=== PATIENT | male | born 1965 | race Caucasian/White ===

== ENCOUNTER 2022-10-27 01:42 | Observation (INO) | payer OTHER ==
[2022-10-27 03:38] VITALS: BMI 28.0
[2022-10-27] MEDS ORDERED: Ondansetron PF 4 MG/2 ML Vial IVP PRN (03:49)
[2022-10-27] MEDS ORDERED: Morphine 2 MG/ML VIAL SLOW IVP PRN ×2 (03:49→15:41)
[2022-10-27] MEDS ORDERED: Morphine 4 MG/ML VIAL SLOW IVP PRN ×2 (03:50→15:41)
[2022-10-27] MEDS: Lactated Ringer's 1,000 ML IV SCH ×2 (05:16→14:04)
[2022-10-27] MEDS ORDERED: Ipratropium/Albuterol 3 ML NEB NEB PRN (07:26)
[2022-10-27] MEDS ORDERED: Famotidine/PF 20 mg/2ml Vial SLOW IVP SCH (09:00)
[2022-10-27] MEDS ORDERED: CEFAZOLIN 2 GM in Sodium Chloride 0.9% 100 ML IVPB SCH (09:30)
[2022-10-27] MEDS ORDERED: Acetaminophen 325 MG TAB PO SCH (12:00)
[2022-10-27] MEDS ORDERED: fentaNYL PF 100 MCG/2 ML SYRINGE ONE (12:49)
[2022-10-27] MEDS ORDERED: SUGAMMADEX SODIUM 200 MG/2 ML VIAL ONE (12:49)
[2022-10-27] MEDS ORDERED: Bupivacaine/Epinephrine 0.25% 30 ML VIAL ONE (12:54)
[2022-10-27] MEDS ORDERED: Lidocaine 1% (PF) 30 ML VIAL ONE (12:54)
[2022-10-27] MEDS ORDERED: Midazolam HCl 2 mg/2 ml Vial ONE (13:01)
[2022-10-27] MEDS ORDERED: Sodium Chloride 0.9% 100 ML ONE (13:02)
[2022-10-27] MEDS ORDERED: CEFAZOLIN 2 GM VIAL ONE (13:02)
[2022-10-27] MEDS ORDERED: Ketorolac Tromethamine 30 MG/ML VIAL ONE (13:10)
[2022-10-27] MEDS ORDERED: Dexamethasone 20 MG/5 ML VIAL ONE (13:10)
[2022-10-27] MEDS ORDERED: PROPOFOL 200 MG/20 ML VIAL ONE (13:10)
[2022-10-27] MEDS ORDERED: Ondansetron PF 4 MG/2 ML Vial ONE (13:10)
[2022-10-27] MEDS ORDERED: ePHEDrine Sulfate 50 MG/10 ML VIAL ONE (13:10)
[2022-10-27] MEDS ORDERED: Lidocaine 1% PF 5 ML VIAL ONE (13:10)
[2022-10-27] MEDS ORDERED: NEOSTIGMINE 3 MG/3 ML SYR 3 MG/3 ML SYRINGE ONE (13:10)
[2022-10-27] MEDS ORDERED: GLYCOPYRROLATE/PF 0.2 MG/ML VIAL ONE (13:10)
[2022-10-27] MEDS ORDERED: Rocuronium Bromide 10 MG/ML (10ML VIAL) ONE (13:10)
[2022-10-27] MEDS ORDERED: HYDROcodone/Acetaminophen 5/325 mg Tablet PO PRN ×2 (15:41)
[2022-10-27 15:45] VITALS: TEMP 98.2
[2022-10-27 16:55] VITALS: BP 123/80
== END 2022-10-27 17:45 | disposition home or self-care (01) ==
LOC: T4-B 02:48 → INTOOBSV 07:26 → OBSVTOIN 07:26
PROVIDERS: ADMIT Surgery; ATTEND Surgery
PROC: 0YU64JZ Supplement Left Inguinal Region with Synthetic Substitute, Percutaneous Endoscopic Approach (ICD-10-PCS; principal; 2022-10-27)
PROC: 8E0W4CZ Robotic Assisted Procedure of Trunk Region, Percutaneous Endoscopic Approach (ICD-10-PCS; 2022-10-27)
DX: K40.30 Unilateral inguinal hernia, with obstruction, without gangrene, not specified as recurrent (principal); K57.30 Diverticulosis of large intestine without perforation or abscess without bleeding
CPT/HCPCS: C1713; G0378; J1100; J1885; J2001; J2250; J2270; J2405; J2704; J3490; J7120; S0028